=== PATIENT | female | born 1970 | race Asian ===

== ENCOUNTER 2018-06-25 12:05 | Emergency (ER) | payer MEDICAID ==
[2018-06-25 13:17] VITALS: BP 121/84
--- NOTE | 2018-06-25 13:18 | Emergency Department Report ---
Blank Doc - Documentation Documentation: This is a 47-year-old female that presents with left hip pain and rash to chest x 2 days. This initial assessment diagnostic orders/clinical plan/treatment(s) is/are subject to change based on patient's health status, clinical progression and re- assessment by fellow clinical providers in the ED. Further treatment and workup at subsequent clinical providers discretion. Patient/guardians urged not to elope from ED s their condition may be serious if not clinically assessed and managed. Initial orders include: Ordered XR of left hip. Fast Track for evaluation.
== END 2018-06-25 13:27 | disposition left against medical advice (07) ==
LOC: ED 12:05
DX: M79.605 Pain in left leg (principal); Z53.21 Procedure and treatment not carried out due to patient leaving prior to being seen by health care provider
CPT/HCPCS: 99281